=== PATIENT | female | born 1965 | race Caucasian/White ===

== ENCOUNTER 2019-12-04 17:01 | Outpatient (CLI) | payer OTHER, SELFPAY ==
--- NOTE | ~2019-12-04 | CT_ITS ---
EXAMINATION: CT abdomen pelvis w con EXAM DATE: 12/04/2019 18:14 INDICATION: R10.30 - Lower abdominal pain, unspecified. Clinical concern for appendicitis. TECHNIQUE: Spiral CT of the abdomen and pelvis was performed following intravenous injection of 100 m L Omnipaque 350. Axial, coronal and sagittal images were reviewed. The dose-length product (DLP) fo r this examination was 237.06 mGy-cm. The exposure was tailored according to patient size (auto mA e xposure control), and iterative reconstruction (ASIR) was used as additional dose reduction technique . There is no prior study for comparison. FINDINGS: The liver, spleen, adrenal glands and pancreas are unremarkable. There are cholecystectomy clips. Portal and splenic veins are patent. Kidneys enhance symmetrically. There is no hydronephr osis. Uterus is significantly enlarged, with multiple fibroids including the largest measuring 8 cm with large hypodense region, consistent with necrosis. The ovaries are normal in size. The bladder is unremarkable. There is no retroperitoneal or pelvic lymphadenopathy. Small umbilical fat-containi ng hernia. The appendix is normal. The stomach and small bowel are unremarkable. There is expected amount of c olonic stool. No free intraperitoneal gas. The heart is normal in size. There are no pericardial or pleural effusions. The lung bases are unremarkable. The bones are unremarkable. IMPRESSION: 1. No acute intra-abdominal findings. 2. Fibroid uterus, largest hypodense consistent with necrosis. 3. Small umbilical fat-containing hernia. Reviewed, dictated and finalized at location A.
[2019-12-04 17:34] LABS: Basophils Absolute Auto 0.1 K/mm3 (0.0-0.1); Basophils Percent Auto 0.5 % (0.2-1.2); Eosinophils Absolute Auto 0.3 K/mm3 (0-0.3); Eosinophils Percent Auto 2.1 % (0-4.4); Hemoglobin 12.9 g/dL (12.0-15.0); Immature Granulocyte Absolute 0.05 K/mm3 (0.00-0.031); Immature Granulocyte Percent A 0.4 % (0-0.5); Lymphocytes Absolute Auto 0.97 K/mm3 (0.9-3.2); Lymphocytes Percent Auto 8.3 % (18.3-44.2); Mean Corpuscular HGB Conc 33.1 g/dl (32-36); Mean Corpuscular Hemoglobin 30.9 pg (26-34); Mean Corpuscular Volume 93.5 fl (80-100); Mean Platelet Volume 9.5 fl (7.4-10.4); Monocytes Absolute Auto 1.1 K/mm3 (0.1-0.6); Monocytes Percent Auto 9.2 % (2.6-8.5); Neutrophils Absolute Auto 9.3 K/mm3 (1.3-6.7); Neutrophils Percent Auto 79.5 % (45.5-73.1); Platelet Count Result 309 k/mm3 (150-375); Red Blood Count 4.17 M/mm3 (4.2-5.4); Red Cell Distribution Width 12.3 % (11.5-14.5); White Blood Count 11.7 K/mm3 (4.5-10.0)
[2019-12-04 17:45] LABS: Alanine Aminotransferase 44 U/L (4-35); Albumin Level 4.4 g/dL (3.5-5.1); Alkaline Phosphatase 99 U/L (38-126); Anion Gap 8 mmol/L (8-16); Aspartate Amino Transferase 51 U/L (14-36); Bilirubin,Total 0.3 mg/dL (0.2-1.3); Blood Urea Nitrogen 16 mg/dL (7-17); Calcium 9.4 mg/dL (8.4-10.2); Carbon Dioxide 31 mmol/L (22-30); Chloride 99 mmol/L (98-107); Estimated Glomerular Filt Rate > 60; Glucose 106 mg/dL (65-105); Potassium 4.1 mmol/L (3.4-5.0); Sodium 138 mmol/L (137-145)
== END 2019-12-04 17:02 | disposition home or self-care (01) ==
PROVIDERS: PCP Family Medicine; Visit Provider Nurse Practitioner Family
DX: R10.30 Lower abdominal pain, unspecified (principal); R10.819 Abdominal tenderness, unspecified site; D25.9 Leiomyoma of uterus, unspecified; K42.9 Umbilical hernia without obstruction or gangrene
CPT/HCPCS: 36415; 74177; 80053; 85025; Q9967

== ENCOUNTER 2019-12-04 19:33 | Emergency (ER) | payer OTHER, SELFPAY ==
[2019-12-04 19:35] VITALS: BP 133/63; PULSE 100; RESP 16; TEMP 36.1; O2SAT 100
--- NOTE | 2019-12-04 19:46 | ED.ABDPAIN ---
HPI - Abdominal Pain General Chief Complaint: Abdominal Pain Stated Complaint: ABNORMAL LABS OR CT Time Seen by Provider: 12/04/19 19:45 Source: patient Mode of arrival: ambulatory Limitations: no limitations History of Present Illness HPI narrative: Patient is a 54-year-old female complaining of lower abdominal pain x 4 days. Pt seen her pcp and had labs ordered and a ct scan today. Pt was told to come to the ER by her pcp due to abnormal finding in her ct scan. MD elicited complaint: abdominal pain Location: periumbilical and suprapubic Severity: moderate Quality: aching Radiation: none Migration to: no migration Exacerbating factors: nothing Relieving factors: nothing Associated symptoms: denies other symptoms Related Data Allergies Allergy/AdvReac Type Severity Reaction Status Date / Time No Known Allergies Allergy Verified 12/04/19 15:34 Review of Systems Review of Systems: All systems reviewed & are unremarkable except as noted in HPI and below Constitutional: Constitutional: Denies body ache(s), Denies chills, Denies excessive sweating, Denies fatigue, Denies fever(s), Denies headache(s), Denies lethargy, Denies malaise, Denies weakness and Denies weight loss Eyes: Eyes: Denies blurry vision, Denies change in vision and Denies loss of vision ENT: Denies dizziness, Denies ear discharge, Denies headache(s), Denies lip swelling, Denies epistaxis, Denies nasal congestion, Denies neck pain, Denies throat swelling and Denies tongue swelling Cardiovascular: Cardiovascular: Denies chest pain, Denies chest pain at rest, Denies chest pain with activity, Denies diaphoresis, Denies rapid heart rate, Denies edema, Denies irregular heart rhythm, Denies lightheadedness, Denies palpitations, Denies dyspnea and Denies dyspnea on exertion Respiratory: Respiratory: Denies chest congestion, Denies cough, Denies hemoptysis, Denies dyspnea and Denies dyspnea on exertion Gastrointestinal: Gastrointestinal: Denies melena, Denies hematochezia, Denies diarrhea, Denies nausea, Denies vomiting and Denies hematemesis Musculoskeletal: Musculoskeletal: Denies abnormal gait, Denies deformity, Denies joint swelling, Denies limited range of motion, Denies neck pain and Denies numbness Neurologic: Denies Abnormal speech present, Denies abnormal gait, Denies confusion, Denies dizziness, Denies headache(s), Denies focal weakness, Denies loss of vision, Denies numbness, Denies Other visual disturbances, Denies Sensory deficit (Neuro) and Denies weakness Psychiatric: Psychiatric: Denies confusion, Denies depression, Denies auditory hallucinations, Denies homicidal ideation and Denies suicidal ideation Endocrine: Endocrine: Denies cold intolerance, Denies excessive sweating, Denies fatigue, Denies heat intolerance and Denies palpitations Hematologic/Lymphatic: Hematologic/Lymphatic: Denies easy bleeding and Denies easy bruising Allergic/Immunologic: Allergic/Immunologic: Denies lip swelling, Denies throat swelling and Denies tongue swelling PMFSH Past Medical History Medical History (Updated 12/04/19 @ 21:55 by Dontrell Gu MD) Cholecystectomy planned Family History Family History Father Diabetes mellitus Grandparent Breast cancer Social History Social History Smoking status: Never smoker Alcohol intake: current Substance use: never Gender identity (if verbalized by the patient): Female Exam Const: General: cooperative, healthy appearing, comfortable, no acute distress, well developed, alert and awake; No confusion Orientation/consciousness: oriented to person, oriented to place, oriented to time, patient oriented x3 and No confusion Limitations: no limitations HENMT: Head: normal to inspection, normocephalic and atraumatic Ears: hearing grossly normal bilaterally, TM normal on the right and TM normal on the left General nose ex
[2019-12-04 22:15] VITALS: BP 124/63; PULSE 84; RESP 16; O2SAT 100
== END 2019-12-04 22:15 | disposition home or self-care (01) ==
PROVIDERS: Emergency Provider Emergency Medicine; PCP Family Medicine
DX: D25.9 Leiomyoma of uterus, unspecified (principal)
CPT/HCPCS: 36415; 74177; 80053; 85025; 99281; Q9967

== ENCOUNTER → 2019-12-20 14:19 | Outpatient (CLI) | payer OTHER, SELFPAY ==
--- NOTE | ~2019-12-20 | US_ITS ---
EXAMINATION: US pelvic complete w TV EXAM DATE: 12/20/2019 14:49 INDICATION: D25.9 - Leiomyoma of uterus, unspecified TECHNIQUE: Pelvic transabdominal and transvaginal sonogram was performed. There are multiple graysca le and Doppler images available for interpretation. There is no prior study for comparison. FINDINGS: Uterus measures 12.4 x 7.9 x 7.8 cm, with fibroid(s). Largest in the body measuring 6 cm. Some have calcifications. Endometrial stripe measures 7 mm, within normal limits. There is a nabothia n cyst. There is no free pelvic fluid. Right adnexa: The ovary is not identified. There is no adnexal mass. Left adnexa: The ovary is not identified. There is no adnexal mass. IMPRESSION: Unremarkable pelvic ultrasound exam. Reviewed, dictated and finalized at location B. FAMILY
== END ==
PROVIDERS: PCP Family Medicine; Visit Provider Student in an Organized Health Care Education/Training Program
DX: D25.9 Leiomyoma of uterus, unspecified (principal)
CPT/HCPCS: 76830; 76856

== ENCOUNTER 2021-04-17 10:02 | Emergency (ER) | payer OTHER, SELFPAY ==
[2021-04-17 10:21] VITALS: BP 147/91; PULSE 71; RESP 18; TEMP 37.2; O2SAT 100
--- NOTE | 2021-04-17 10:39 | ED.UPPEXIN ---
HPI - Extremity Injury (Upper) General Chief Complaint: Extremity Injury, Upper Stated Complaint: upper rt arm pain Time Seen by Provider: 04/17/21 10:27 Source: patient and RN notes reviewed Mode of arrival: ambulatory Limitations: no limitations History of Present Illness HPI narrative: Patient presents today complaining of right shoulder pain x2 days. Denies injury or trauma. She does go to the gym regularly. 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 Denies numbness or tingling in the arm or hand. She rates her pain 2/10 at rest, which increases to 10/10 with any movement of the shoulder. She is been taking ibuprofen without relief. MD complaint: injury to: right and shoulder Related Data Allergies Allergy/AdvReac Type Severity Reaction Status Date / Time No Known Allergies Allergy Verified 04/17/21 10:42 Review of Systems Review of Systems: CONSTITUTIONAL: Denies body aches, fever, chills, or sweats. EYES: Denies visual changes, redness, or discharge. ENT: Denies rhinorrhea, congestion, sore throat, or otalgia. CARDIOVASCULAR: Denies chest pain, palpitations, or edema. RESPIRATORY: Denies cough or dyspnea. GASTROINTESTINAL: Denies abdominal pain, nausea, vomiting, or diarrhea. GENITOURINARY: Denies dysuria or hematuria. SKIN: Denies rash, itching, or wounds. MUSCULOSKELETAL: Denies back pain, or myalgia. + Shoulder pain NEUROLOGIC: Denies headache, numbness, tingling, or weakness. PSYCH: Denies depression or anxiety. [facility] Past Medical History Medical History Cholecystectomy planned Vaginal delivery x 2 Surgical History Surgical History History of bilateral tubal ligation History of breast augmentation History of cholecystectomy Family History Family History Grandparent Carcinoma of colon Social History Social History Smoking status: Never smoker Alcohol intake: current Drinks per week: 4 Substance use: never Gender identity (if verbalized by the patient): Female Comments At time of signature, I have reviewed and agree with nursing past medical, surgical, social and family history unless otherwise noted. Please see nursing chart for further information. There is no relevant family history pertinent to the presenting complaint Exam Narrative: GENERAL: Well-appearing, well-nourished, and in no acute distress. HEAD: Normocephalic, atraumatic. EYES: EOMI. No redness or drainage. Conjunctivae normal. ENT: Mucous membranes pink and moist. NECK: Normal AROM. CHEST: No respiratory distress. EXTREMITIES: Right shoulder: Patient has significant tenderness along the bursa. No bony tenderness. No tenderness along the humerus, elbow, or forearm. Distal sensation intact. Capillary refill normal. Radial pulse normal. Patient has very limited range of motion due to pain in all directions. SKIN: Warm, dry, no rash. Capillary refill normal. Normal skin turgor. NEURO: No focal deficits. Alert and oriented x3. Gait steady. PSYCH: Normal affect. No signs of depression or anxiety. Course Course Level of Care: Express Care Visit Vital Signs Vital signs: Vital Signs Temperature 98.9 F 04/17/21 10:21 Pulse Rate 71 04/17/21 10:21 Respiratory Rate 18 04/17/21 10:21 Blood Pressure 147/91 H 04/17/21 10:21 Pulse Oximetry 100 04/17/21 10:21 Temperature 98.9 F 04/17/21 10:21 Pulse Rate 71 04/17/21 10:21 Respiratory Rate 18 04/17/21 10:21 Blood Pressure 147/91 H 04/17/21 10:21 Pulse Oximetry 100 04/17/21 10:21 Reviewed. Pt has been instructed to follow up with her PCP regarding her elevated blood pressure today. MDM - Extremity Injury (Upper) Differential Diag
== END 2021-04-17 10:49 | disposition home or self-care (01) ==
PROVIDERS: Emergency Provider Nurse Practitioner; PCP Family Medicine
DX: M75.51 Bursitis of right shoulder (principal)
CPT/HCPCS: 99213; G0463

== ENCOUNTER → 2021-08-23 16:42 | Outpatient (CLI) | payer OTHER, SELFPAY ==
--- NOTE | ~2021-08-23 | XR_ITS ---
XR cervical spine min 6V 08/23/2021 17:23 Indication: Neck pain Procedure: 6 views of the cervical spine including flexion/extension views Comparison: No prior studies for comparison. Findings: There is reversal of cervical lordosis, likely due to muscle spasm or positioning. Vertebra l body heights are maintained. There is anatomic alignment. There is degenerative disc disease and en dplate hypertrophy at C5-6. No prevertebral soft tissue swelling. There is uncinate hypertrophy at C4 -5, C5-6 and C6-C7. Odontoid process is normal. Lung apices are normal. No significant alteration of alignment with flexion/extension. Impression: 1: Mild cervical spondylosis with reversal of cervical lordosis. Reviewed, dictated and finalized at location A. Impression: 1: Mild cervical spondylosis with reversal of cervical lordosis.
== END ==
PROVIDERS: PCP Family Medicine; Visit Provider Nurse Practitioner Family
DX: M54.2 Cervicalgia (principal); R20.2 Paresthesia of skin; M47.812 Spondylosis without myelopathy or radiculopathy, cervical region; M53.82 Other specified dorsopathies, cervical region
CPT/HCPCS: 72052

== ENCOUNTER → 2022-01-04 06:54 | Outpatient (CLI) | payer OTHER, SELFPAY ==
--- NOTE | ~2022-01-04 | MR_ITS ---
EXAMINATION: MR cervical spine wo con DATE: 01/04/2022 07:31 INDICATION: Cervical radicular pain. TECHNIQUE: Magnetic resonance imaging (MRI) of the cervical spine was performed without intravenous c ontrast. Sequences included sagittal T2-weighted FSE, sagittal T2-weighted FS FSE, sagittal T1-weight ed FSE, axial MERGE, and axial T2-weighted FSE. COMPARISON: Cervical spine radiographs 08/23/2021 FINDINGS: There is 6 degrees levocurvature of cervicothoracic spine. There is kyphosis of cervical sp ine. There is mild chronic anterior wedging of C5 vertebral body. There is moderately decreased disc height at C5-C6. The spinal cord signal intensity is normal. The following disc levels are specifical ly discussed: C2-C3: The disc does not extend beyond the endplate margin. There is no uncovertebral joint osteoarth ritis. There is mild bilateral facet joint osteoarthritis. There is mild left neural foraminal stenos is. There is no central canal stenosis. C3-C4: The disc does not extend beyond the endplate margin. There is moderate right uncovertebral ethan nt osteoarthritis. There is no facet joint osteoarthritis. There is mild right neural foraminal steno sis. There is no central canal stenosis. C4-C5: The disc does not extend beyond the endplate margin. There is moderate right and mild left unc overtebral joint osteoarthritis. There is no facet joint osteoarthritis. There is moderate right and mild left neural foraminal stenosis. There is no central canal stenosis. C5-C6: The disc is bulging. There is severe bilateral uncovertebral joint osteoarthritis. There is no facet joint osteoarthritis. There is moderate right and mild left neural foraminal stenosis. There i s mild central canal stenosis with ventral indentation of the spinal cord. C6-C7: The disc does not extend beyond the endplate margin. There is mild bilateral uncovertebral ethan nt osteoarthritis. There is no facet joint osteoarthritis. There is mild bilateral neural foraminal s tenosis. There is no central canal stenosis. C7-T1: There is a left central extrusion. There is mild bilateral uncovertebral joint osteoarthritis. There is mild bilateral facet joint osteoarthritis. There is mild bilateral neural foraminal stenosi s. There is mild central canal stenosis. IMPRESSION: 1. Moderate cervical spondylosis. Reviewed, dictated and finalized at location A. ER SERVICE TECHNICIAN
== END ==
PROVIDERS: PCP Family Medicine; Visit Provider Nurse Practitioner Family
DX: M47.22 Other spondylosis with radiculopathy, cervical region (principal)
CPT/HCPCS: 72141

== ENCOUNTER 2024-01-14 09:41 | Emergency (ER) | payer OTHER, SELFPAY ==
--- NOTE | ~2024-01-14 | XR_ITS ---
EXAMINATION: XR foot RT min 3V DATE: 01/14/2024 10:25 INDICATION: Right foot injury and pain. TECHNIQUE: 4 views of right foot were obtained. COMPARISON: None. FINDINGS: Bone alignment is normal. No fracture. There is mild osteoarthritis of first metatarsophala ngeal joint and some of the interphalangeal joints. There are enthesophytes at the posterior and plan tar aspects of calcaneal tuberosity. There are dystrophic calcifications dorsal to distal talus. IMPRESSION: 1. Particular osteoarthritis. Reviewed, dictated and finalized at location A. SYSTEM OPERATOR
[2024-01-14 10:10] VITALS: BP 139/76; PULSE 69; RESP 18; TEMP 37.2; O2SAT 99
--- NOTE | 2024-01-14 10:46 | ED.LOWEXIN ---
HPI - Extremity Injury (Lower) General Chief Complaint: Extremity Injury, Lower Stated Complaint: rt foot pain Source: patient Mode of arrival: ambulatory Limitations: no limitations History of Present Illness HPI Narrative: 58-year-old female presented complaint of right pain, swelling, and bruising after injury yesterday. She states she stepped wrong while walking on ice down a step and rolled the foot. Pain is worse to the midfoot with weight-bearing. Endorses full range of motion to the ankle and toes. Denies numbness, tingling, deformity or weakness. Has taken anything pain. She has Carmine wrap in place. Related Data Allergies Allergy/AdvReac Type Severity Reaction Status Date / Time No Known Allergies Allergy Verified 01/14/24 10:20 Review of Systems Review of Systems: CONSTITUTIONAL: Denies body aches, fever, chills CARDIOVASCULAR: Denies chest pain, palpitations, or edema. RESPIRATORY: Denies cough or dyspnea. SKIN: Denies wounds. MUSCULOSKELETAL: Reports right foot pain and bruising NEUROLOGIC: Denies headache, numbness, tingling, or weakness. PSYCH: Denies depression or anxiety. All systems reviewed & are unremarkable except as noted in HPI and below PMFSH Past Medical History Medical History BMI 23.0-23.9, adult Body mass index [BMI] 22.0-22.9, adult Cholecystectomy planned Decreased libido Menopausal hot flushes Screening for lipid disorders Vaginal delivery x 2 Vaginal spotting Surgical History Surgical History History of bilateral tubal ligation History of breast augmentation History of cholecystectomy Family History Family History Grandparent Carcinoma of colon Father Diabetes mellitus Mother COPD (chronic obstructive pulmonary disease) Asthma Sibling Heart disease Social History Social History Smoking status: Never smoker Second hand tobacco smoke exposure: Yes Alcohol intake: current Drinks per week: 4 Substance use: never Substance use type: does not use Do You Feel Safe in your Home?: Yes Lack of Transportation: No Lack of Food: Never True Current Housing: I Have Housing Concerned About Future Housing: No Difficulty Paying Gas/Electric Bills: No Difficulty Paying for Meds: No Currently Unemployed: No Education: Bachelor's Degree Difficulty w/ Childcare or Family Care: No Living arrangements: with family Occupation/Education: occupation 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 Please see nursing chart for further information. There is no relevant family history pertinent to the presenting complaint Exam Narrative: GENERAL: Well-appearing CHEST: Speaks in full sentences. No respiratory distress. HEART: Regular rate and rhythm. Normal and equal peripheral pulses. EXTREMITIES: Right foot has normal strength and sensation, normal range of motion, endorses pain to midfoot with weight bearing. Swelling and ecchymosis to lateral and medial aspects of the midfoot. Nontender malleolus. No open wounds, or obvious deformity; alignment normal, pulse palpable and equal bilaterally, skin warm, dry, pink. Capillary refill less than 3 seconds. SKIN: Warm, dry NEURO: Alert and oriented x3. PSYCH: Normal mood and affect Course Course Emergency Course: Patient is aware of diagnosis, understands and agrees to treatment plan. Anticipatory guidance given. Patient agrees to follow-up as directed and is aware of reasons to seek care at the emergency department. Portions of this record may have been created with voice recognition software Level of Care: Express Care Visit Vital Signs Vital signs: Vital Signs Temperature 99.0 F 01/14/24 10:10 Pulse Rate 69 01/14/24 10:10 Respiratory Rate 18 01/14/24 10:10 Blood Pressure 139/76 01/14/24 10:10 Pulse Oximetry 99 01/14/24 10:10 Oxygen Delivery Room Air 01/14/24 10:10 Temperature 99.0 F 01/14/24 10:10 Pulse Rate 69 01/14/24 10:10 Respiratory Rate 18 01/14/24 10:10 Blood Pressure 139/76 01/14/24 10:10 Pulse Oximetry 99 01/14/24 10:10 Oxygen Delivery Room Air 01/14/24 10:10 Reviewed MDM - Extremity Injury (Lower) MDM Narrative Medical decision making narrative: Discussed physical exam findings and x-ray. Reapplied patient's home Carmine wrap, she declines new Carmine wrap or crutches at this time. Advised supportive measures and signs/symptoms to go to the ER. Pt is appropriate for outpt treatment and f/u. Differential Diagnosis Differential diagnosis: Likely ankle sprain and strain, ankle fracture and other (foot fracture, sprain, contusion) Imaging Data Radiologist's impression: Patient: Monalisa Wong : 1965 MR#: [id number] Age: 58 Acct:[id number] Loc: [facility] ADM Date: 01/14/24Attending Dr: Ordering Physician: Angelica Cano APRN Date of Service: 01/14/24 Procedure(s): XR foot RT min 3V Accession Number(s): [id number] cc: Angelica Cano APRN; Harry Yu MD~ EXAMINATION: XR foot RT min 3V DATE: 01/14/2024 10:25 INDICATION: Right foot injury and pain. TECHNIQUE: 4 views of right foot were obtained. COMPARISON: None. FINDINGS: Bone alignment is normal. No fracture. There is mild osteoarthritis of first metatarsophalangeal joint and some of the interphalangeal joints. There are enthesophytes at the posterior and plantar aspects of calcaneal tuberosity. There are dystrophic calcifications dorsal to distal talus. IMPRESSION: 1. Particular osteoarthritis. Discharge Plan Discharge Clinical Impression: Right foot sprain Patient Disposition: Home, Self-Care Condition: Stable Instructions: Antibiotic Form, Foot Sprain (ED) Additional Instructions: Rest and elevate the right leg; bear weight as tolerated Apply ice 15-20 minute intervals several times a day Keep it wrapped with CARMINE or use a soft ankle splint Motrin 800mg every 8 hours (x5 days), alternate with Tylenol 1000mg every 8 hours as needed Follow up with your primary care provider Go to the ER for worsening symptoms or concerns Prescriptions: New ibuprofen 800 mg tablet 800 mg PO TID PRN (Reason: pain) Qty: 15 0RF No Action venlafaxine 37.5 mg capsule,extended release 24hr 37.5 mg PO QPM Qty: 30 2RF Follow-up/Referrals: Harry Yu MD [Primary Care Provider] - Stand Alone Forms: Work/School Release IP
== END 2024-01-14 10:56 | disposition home or self-care (01) ==
PROVIDERS: Emergency Provider Nurse Practitioner Family; PCP Family Medicine
DX: S93.601A Unspecified sprain of right foot, initial encounter (principal); X50.9XXA Other and unspecified overexertion or strenuous movements or postures, initial encounter
CPT/HCPCS: 73630; 99213; G0463